=== PATIENT | female | born 1980 | race Caucasian/White ===

== ENCOUNTER 2020-12-06 04:25 | Emergency (ER) | payer OTHER, SELFPAY ==
--- NOTE | ~2020-12-06 | XR_ITS ---
EXAMINATION: XR chest 1V portable DATE: 12/06/2020 05:15 INDICATION: COVID positive presenting with cough and fever TECHNIQUE: frontal view of the chest was obtained. COMPARISON: None FINDINGS: Subtle opacities in the left lower lung zone. Right lung is clear. No pleural effusion or pneumothora x. The cardiomediastinal silhouette is normal. Visualized bones and soft tissues are unremarkable. IMPRESSION: 1. Subtle opacities in the left lower lung zone which could represent atelectasis or pneumonia. Reviewed, dictated and finalized at location A. IMPRESSION: 1. Subtle opacities in the left lower lung zone which could represent atelectas is or pneumonia.
[2020-12-06 04:38] VITALS: BP 136/70; PULSE 94; RESP 18; TEMP 37.2; O2SAT 96
--- NOTE | 2020-12-06 04:42 | PC.NURSE ---
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
--- NOTE | 2020-12-06 04:57 | ED.GENADULT ---
HPI - General Adult General Chief complaint: Unspecified Stated complaint: sick Source: patient Mode of arrival: ambulatory Limitations: no limitations History of Present Illness HPI narrative: Shanthi is a previously healthy 40F that presented to the ED feeling ill. It started with diarrhea 7 days ago. A few days ago she started to have a fever up to 102 and have fatigue, aches, non-productive cough and a couple episodes of vomiting per day. She has a son and boyfriend that are covid positive. Related Data Home Medications Medication Instructions Recorded Confirmed No Home Medications 12/06/20 12/06/20 Allergies Allergy/AdvReac Type Severity Reaction Status Date / Time No Known Allergies Allergy Verified 12/06/20 04:48 Review of Systems Constitutional: Constitutional: Reports chills, Reports fatigue, Reports fever(s) and Reports headache(s) Eyes: Eyes: Reports no additional eye complaints ENT: Reports system reviewed and no additional complaints, except as documented Cardiovascular: Cardiovascular: Reports as per HPI Respiratory: Respiratory: Reports as per HPI Gastrointestinal: Gastrointestinal: Reports as per HPI Genitourinary: Genitourinary: Reports no additional female genitourinary complaints Musculoskeletal: Musculoskeletal: Reports no additional musculoskeletal complaints Integumentary/Breasts: Skin/Breast: Reports system reviewed and no additional complaints, except as docu Neurologic: Reports system reviewed and no additional complaints, except as documented Psychiatric: Psychiatric: Reports no additional psychiatric complaints Endocrine: Endocrine: Reports no additional endocrine complaints Hematologic/Lymphatic: Hematologic/Lymphatic: Reports no additional hematologic/lymphatic complaints Allergic/Immunologic: Allergic/Immunologic: Reports no additional allergic/immunologic complaints Exam Const: General: cooperative, healthy appearing, comfortable and no acute distress HENMT: Head: normal to inspection, normocephalic and atraumatic Eyes: General: appearance normal, both eyes and all related structures Neck: Neck: normal visual inspection Chest: Chest palpation & inspection: normal inspection of the chest Resp: Effort & Inspection: normal respiratory effort and able to speak in complete sentences Auscultation: clear to auscultation bilaterally Other: cough present throughout exam Cardio: Rate: regular rate Rhythm: regular rhythm Peripheral pulses: Peripheral pulses 2+ throughout GI: Inspection: normal to inspection GI Palp: No abdominal tenderness Auscultation: normal bowel sounds Back/Spine/Pelvis: Back: no CVA tenderness Skin: General skin exam: normal color and no rashes or lesions noted Neuro: General: oriented to person, oriented to place and oriented to time Extrem: General: normal to inspection Psych: Appearance: grossly normal and well kempt Mental Status: mental status grossly normal Speech and movement: Normal speech and movement present Affect: normal affect Attitude: cooperative Thought process: Normal thought process present Course Course Emergency Course: She tested positive for covid, had leukopenia, slight hypokalemia and her CXR showed multifocal pneumonia consistent with covid. We discussed Casirivimab and Imdevimab and she stated that she would like to try the infusion. Vital Signs Vital signs: Vital Signs Temperature 98.9 F 12/06/20 04:38 Pulse Rate 94 12/06/20 04:38 Respiratory Rate 18 12/06/20 04:38 Blood Pressure 136/70 12/06/20 04:38 Pulse Oximetry 96 12/06/20 04:38 Temperature 97.8 F 12/06/20 08:56 Pulse Rate 84 12/06/20 08:56 Respiratory Rate 20 12/06/20 08:56 Blood Pressure 130/84 12/06/20 08:56 Pulse Oximetry 97 12/06/20 08:56 Medical Decision Making Vital Signs Vital Signs: Vital Signs Temperature 98.9 F 12/06/20 04:38 Pulse Rate 94 12/06/20 04:38 Respiratory Rate 18 0
[2020-12-06] MEDS: ONDANSETRON HCL ODT 4 MG TABLET PO ×2 (05:04→07:50)
[2020-12-06 05:09] LABS: Influenza Control Valid (Valid)
[2020-12-06 05:10] LABS: SARS-CoV-2 Ag Positive (Negative)
[2020-12-06 05:29] LABS: Hematocrit 35.4 % (35.0-49.0); Hemoglobin 11.3 g/dL (12.0-15.0); Mean Corpuscular HGB Conc 31.9 g/dL (32.0-36.0); Mean Corpuscular Hemoglobin 25.3 pg (27.0-31.0); Mean Corpuscular Volume 79.4 fL (78.0-102.0); Mean Platelet Volume 10.3 fl (9.2-11.8); Platelet Count Result 177 K/mm3 (150-420); Red Blood Count 4.46 M/mm3 (4.20-5.40); White Blood Count 2.3 K/mm3 (4.8-10.8)
[2020-12-06 05:31] LABS: Add Urine Microscopic? YES; Appearance Urine Clear (Clear); Bilirubin Urine Negative (Negative); Blood Urine 2+ (Negative); Color Urine Yellow (Yellow); Glucose Urine UA Negative (Negative); Ketones Urine Negative (Negative); Leukocyte Esterase Ur Negative (Negative); Nitrate Urine Negative (Negative); Protein Urine 2+ (Negative); Specific Grav Ur 1.025 (1.010-1.020); Urobilinogen Urine 0.2 mg/dL (0.2-1.0)
[2020-12-06 05:37] LABS: Squamous Epithelial Cell Urine Few /hpf (Few); WBC Urine None seen /hpf (0-3)
[2020-12-06 05:38] LABS: Bacteria Urine Trace /hpf; Mucus Urine Few /lpf
[2020-12-06 05:38] LABS: Anion Gap 10 mmol/L (8-16); Blood Urea Nitrogen 8 mg/dL (7-18); Calcium 8.1 mg/dL (8.5-10.1); Carbon Dioxide 27 mmol/L (21-32); Chloride 100 mmol/L (98-108); Estimated CRCL calculation 107 ml/min; Estimated Glomerular Filt Rate > 60; Glucose 145 mg/dL (70-99); Osmolality Calculated 285 mOsm/kg (285-295); Potassium 3.4 mmol/L (3.5-5.1); Sodium 137 mmol/L (136-145)
[2020-12-06 05:51] LABS: Band Neutrophils Percent 4 % (0-6); Basophils Absolute Manual 0.02 K/mm3 (0-0.1); Basophils Percent Manual 1 % (0-1); Eosinophils Percent Manual 0 % (1-6); Lymphocytes Absolute Manual 0.82 K/mm3 (1.1-4.5); Lymphocytes Percent Manual 36 % (18-44); Monocytes Absolute Manual 0.11 K/mm3 (0.1-0.90); Monocytes Percent Manual 5 % (3-9); Neutrophils Absolute Manual 1.33 K/mm3 (1.7-7.2); Neutrophils Percent Manual 54 % (46-73); Platelet Estimate Adequate (Adequate); Total Cells Counted 100
[2020-12-06] MEDS: FAMOTIDINE 20 MG TABLET PO (06:41)
[2020-12-06] MEDS: ACETAMINOPHEN 325 MG TABLET 650 MG PO (06:41)
[2020-12-06] MEDS: diphenhydrAMINE HCl CAP 25 MG CAPSULE PO (06:41)
[2020-12-06] MEDS: SODIUM CHLORIDE 0.9% IV 250 ML (06:42)
[2020-12-06 06:46] VITALS: BP 122/80; PULSE 90; RESP 16; TEMP 36.8; O2SAT 96
--- NOTE | 2020-12-06 07:00 | PC.NURSE ---
report to Darnell
--- NOTE | 2020-12-06 08:19 | PC.NURSE ---
resumed care at 0700 , report from heike paiz. pt resting per cot. iv infusion continues as ordered. no side effects noted. 0745 slight nausea after drinking pepsi, erp dr reagan notified. med given as ordered. 0750 infusion completed, iv site normal. pt resting for 1 hour observation after infusion. no other needs at this time. 0800 pt resting per cot, side rails up . call munguia in reach. 0820 no adverse reaction noted after infusion completed. continue to observe.
[2020-12-06 08:22] VITALS: BP 130/72; PULSE 86; RESP 20; TEMP 37.1; O2SAT 97
--- NOTE | 2020-12-06 08:52 | PC.NURSE ---
0750 pt up to bathroom in room with bedside commode. discharge instructions given and voiced understanding regarding covid instructions and quarantine. pt states feeling fine after infusion. no side effects noted. call to [facility] for a ride home. awaiting arrival.
[2020-12-06 08:56] VITALS: BP 130/84; PULSE 84; RESP 20; TEMP 36.6; O2SAT 97
== END 2020-12-06 09:11 | disposition home or self-care (01) ==
PROVIDERS: Emergency Provider Family Medicine; PCP Family Medicine
DX: U07.1 COVID-19 (principal)
CPT/HCPCS: 36415; 71045; 80048; 81001; 85025; 85060; 87426; 87804; 96360; 99283; A9270; C9803; J7050